=== PATIENT | female | born 1960 | race Hispanic/Latino ===

== ENCOUNTER → 2021-09-15 | Day surgery (SDC) | payer OTHER ==
[2021-09-13 11:29] LABS: BASOPHILS # (AUTO) 0.1 (0.0-0.1); EOSINOPHILS # (AUTO) 0.3 (0.0-0.4); EOSINOPHILS % 4.2 % (0.0-6.0); HEMATOCRIT 40.6 % (34.2-44.1); LYMPHOCYTES # (AUTO) 2.3 (1.0-3.2); LYMPHOCYTES % 34.3 % (18.0-39.1); MEAN CORPUSCULAR HEMOGLOBIN 28.7 pg (28-32); MEAN CORPUSCULAR VOLUME 89.6 fL (81-99); MONOCYTES # (AUTO) 0.5 (0.2-0.8); NEUTROPHILS # (AUTO) 3.6 (2.1-6.9); NEUTROPHILS % 53.1 % (38.7-80.0); PLATELET COUNT 353 x10e3/uL (140-360); RED BLOOD COUNT 4.53 x10e6/uL (3.6-5.1); RED CELL DISTRIBUTION WIDTH 13.1 % (11.7-14.4)
[2021-09-13 11:45] LABS: ANION GAP 15.8 mmol/L (8-16); CALCIUM 9.1 mg/dL (8.4-10.2); CREATININE, SERUM 0.75 mg/dL (0.57-1.11); POTASSIUM 4.8 mmol/L (3.5-5.1)
[~2021-09-15] MED LIST: BUPIVACAINE HC 0.75% PF 10ML VIAL INJ ONE; CENTRUM ADULTS1 EACH PO; CITRACAL SOFT1 EACH PO; COQ1050 MG PO; DEXAMETHASONE SOD PHOS INJ 4 MG/ML SDV ONE; FENTANYL CITRATE/PF 100MCG/2 ML INJ ONE; HYDROXYZINE HCL25 MG PO; KETOROLAC TROMETHAMINE 30 MG/ML VIAL ONE; LIDOCAINE HCL 2% LOCAL INJ 5 ML SDV VIAL INJ ONE; MICARDIS40 MG PO; MIDAZOLAM HCL 2 MG/2 ML VIAL ONE; NEOSTIGMINE 1 MG/ML 10ML VIAL ONE; ONDANSETRON HCL INJ 2MG/ML 2ML 2 MG/ML VIAL ONE; POVIDONE IODINE 0.05% 0.05 % ML PO ONE; PREMPRO 0.625-1 EAC1 PO; PROPOFOL IV EMULSION 10 MG/ML 20 ML VIAL ONE; SEVOFLURANE INHAL SOLN 250 ML PEN BTL ONE
[2021-09-15 11:00] VITALS: BP 140/91
== END | disposition home or self-care (01) ==
LOC: OR 05:39
PROVIDERS: ATTEND Podiatrist Foot Surgery
DX: M20.12 Hallux valgus (acquired), left foot (principal); M20.42 Other hammer toe(s) (acquired), left foot; M21.272 Flexion deformity, left ankle and toes; I10 Essential (primary) hypertension; I83.90 Asymptomatic varicose veins of unspecified lower extremity; E66.9 Obesity, unspecified; Z01.810 Encounter for preprocedural cardiovascular examination; Z01.812 Encounter for preprocedural laboratory examination; Z01.818 Encounter for other preprocedural examination; Z20.822 Contact with and (suspected) exposure to COVID-19; Z79.899 Other long term (current) drug therapy; Z68.35 Body mass index [BMI] 35.0-35.9, adult
CPT/HCPCS: 28285; 28297; 28308; 36415; 71046; 76000; 80048; 85025; 93005; J0690; J1100; J1885; J2001; J2250; J2405; J2704; J2710; J3010; U0002